=== PATIENT | male | born 1955 | race Caucasian/White ===

== ENCOUNTER 2024-03-15 13:42 | Outpatient (CLI) | payer MEDICARE, OTHER | END 2024-03-15 13:43 | disposition home or self-care (01) | LOC: SCSRAD 13:42 | PROVIDERS: ATTEND Family Medicine | DX: M25.512 Pain in left shoulder (principal); M54.50 Low back pain, unspecified; M25.562 Pain in left knee; M25.561 Pain in right knee; M47.816 Spondylosis without myelopathy or radiculopathy, lumbar region; M19.012 Primary osteoarthritis, left shoulder; M17.0 Bilateral primary osteoarthritis of knee; M25.462 Effusion, left knee | CPT/HCPCS: 72100 ==